=== PATIENT | female | born 1990 | race Caucasian/White ===

== ENCOUNTER → 2023-01-11 | Outpatient (CLI) | payer OTHER ==
[2023-01-11 13:55] VITALS: BP 114/68; PULSE 57; TEMP 98.3; BMI 32.1
--- NOTE | 2023-01-11 17:42 | P.HPBAR ---
Bariatric H&P - History & Physicial H&P Date: 01/11/23 History & Physicial: Visit/CC: lap band Patient initial contact: Initial weight: Initial weight in pounds: Height: 5 ft 8 in Initial BMI: Last weight: Current weight: 95.708 kg Current weight in pounds: 211.00 Current BMI: 32.1 [place] body weight (based on NIH guidelines): 63.503 kg Excess body weight loss: The patient is a 32 year-old F who presents for Bariatric Assessment. Patient resents today for LAP-BAND follow-up. She's not been seen in many years. Her LAP-BAND was placed 2008 12. Patient had a computed tomography scan performed at outside hospital showed disconnection of her LAP-BAND port. Patient wishes to have a LAP-BAND system removed. Past Medical History Past Medical History: No Reported History History of Any Multi-Drug Resistant Organisms: None Reported Past Surgical History: Bariatric Surgery, Breast Surgery Additional Past Surgical History / Comment(s): breast reduction, lap band 2008 Past Anesthesia/Blood Transfusion Reactions: No Reported Reaction Past Psychological History: No Psychological Hx Reported Smoking Status: Never smoker Past Alcohol Use History: Occasional Past Drug Use History: None Reported Surgical - Exam Vital Signs Temp Pulse BP 98.3 F 57 L 114/68 01/11/23 13:37 01/11/23 13:37 01/11/23 13:37 - General well developed, well nourished, no distress - Eyes PERRL - ENT normal pinna - Neck no masses - Abdomen Abdomen: soft, non tender Bariatric Assessment & Plan Plan: LAP-BAND port malfunction. Patient will have her LAP-BAND system removed. Patient is aware the risk After the LAP-BAND system was removed. Bariatric Checklist Checklist: Plan: Checklist: EGD: 1. Hiatal hernia: 2. H. Pylori: HgbA1c: Vitamin D: Smoking: Primary care physician referral: Dr. Mcduffie Psychiatry clearance: Cardiology clearance: Sleep study: Diet journal: VTE risk score: VTE risk level: Rehab needs at discharge:
== END ==
LOC: BARWHC3 13:04
PROVIDERS: ATTEND Surgery
DX: K95.09 Other complications of gastric band procedure (principal); E66.01 Morbid (severe) obesity due to excess calories; Z68.32 Body mass index [BMI] 32.0-32.9, adult; Z98.84 Bariatric surgery status
CPT/HCPCS: 99202

== ENCOUNTER 2023-02-12 05:36 | Day surgery (SDC) | payer OTHER ==
[2023-02-08 09:46] VITALS: BMI 31.9
[2023-02-12] MEDS ORDERED: SCOPOLAMINE 1 MG/72 HR PATCH TRANSDERM ONE (05:48)
[2023-02-12] MEDS ORDERED: ONDANSETRON 4 MG/2 ML VIAL IVP ONE (05:48)
[2023-02-12] MEDS ORDERED: DEXAMETHASONE SOD PHOSPHATE 4 MG/ML 1 ML VIAL IV ONE (05:48)
[2023-02-12] MEDS ORDERED: LACTATED RINGERS 1,000 ML IV SCH (05:48)
[2023-02-12] MEDS ORDERED: LACTATED RINGERS 1,000 ML IV ONE (06:17)
[2023-02-12 06:24] VITALS: TEMP 97.8
[2023-02-12] MEDS ORDERED: MIDAZOLAM 2 MG/2 ML VIAL IV PRN (07:00)
[2023-02-12] MEDS ORDERED: fentaNYL (PF) 50 MCG/ML 2 ML AMP IV PRN (07:00)
[2023-02-12] MEDS ORDERED: GLYCOPYRROLATE 0.2 MG/ML 2 ML VIAL ONE (07:08)
[2023-02-12] MEDS ORDERED: HYDROmorphone (PF) 1 MG/ML ONE (07:08)
[2023-02-12] MEDS ORDERED: fentaNYL (PF) 50 MCG/ML 2 ML AMP ONE (07:08)
[2023-02-12] MEDS ORDERED: ROCURONIUM 10 MG/ML (5 ML VIAL) IV ONE (07:08)
[2023-02-12] MEDS ORDERED: MIDAZOLAM 2 MG/2 ML VIAL ONE (07:08)
[2023-02-12] MEDS ORDERED: LIDOCAINE 1% INJ 10MG/ML (20 ML MDV) ONE (07:08)
[2023-02-12] MEDS ORDERED: KETOROLAC 15 MG/ML 1 ML VIAL ONE (07:08)
[2023-02-12] MEDS ORDERED: NEOSTIGMINE 1 MG/ML 10 ML VIAL ONE (07:08)
[2023-02-12] MEDS ORDERED: SUCCINYLCHOLINE CHLORIDE 200 MG/10 ML VIAL IV ONE (07:08)
[2023-02-12] MEDS ORDERED: PROPOFOL 10 MG/ML 20 ML VIAL IV ONE (07:08)
[2023-02-12] MEDS ORDERED: BUPIVACAINE (PF) 0.5% 30 ML VIAL SQ ONE (07:39)
--- NOTE | 2023-02-12 08:08 | P.GSHP ---
History of Present Illness H&P Date: 02/12/23 Chief Complaint: LAP-BAND port malfunction This a 29-year-old female who's had LAP-BAND surgeon past. Patient has a LAP- BAND port malfunction with a disconnect LAP-BAND port. Patient requesting removal LAP-BAND system. Patient's aware the risks and potential weight gain. Past Medical History Past Medical History: No Reported History Additional Past Medical History / Comment(s): LAP BAND MALFUNCTION History of Any Multi-Drug Resistant Organisms: None Reported Past Surgical History: Bariatric Surgery, Breast Surgery Additional Past Surgical History / Comment(s): breast reduction, lap band 2009, EGD Past Anesthesia/Blood Transfusion Reactions: No Reported Reaction Smoking Status: Never smoker - Past Family History Mother Family Medical History: No Reported History Medications and Allergies Home Medications Medication Instructions Recorded Confirmed Type No Known Home Medications 12/30/22 02/08/23 History Allergies Allergy/AdvReac Type Severity Reaction Status Date / Time morphine Allergy Rash/Hives Verified 02/08/23 09:18 Surgical - Exam Vital Signs Temp Pulse Resp BP Pulse Ox 97.8 F 78 18 129/60 98 02/12/23 06:16 02/12/23 06:16 02/12/23 06:16 02/12/23 06:16 02/12/23 06:16 - General well developed, well nourished, no distress - Eyes PERRL - ENT normal pinna - Neck no masses - Respiratory normal expansion - Cardiovascular Rhythm: regular - Abdomen Abdomen: soft, non tender Assessment and Plan Assessment: LAP-BAND port function. We'll perform removal of LAP-BAND port system.
--- NOTE | 2023-02-12 08:10 | P.OP ---
Date of Procedure: 02/12/23 Preoperative Diagnosis: LAP-BAND port malfunction Postoperative Diagnosis: LAP-BAND port malfunction Procedure(s) Performed: Removal of LAP-BAND system Transversus abdominis plane block Anesthesia: ERROL Surgeon: Jose Campos Estimated Blood Loss (ml): 5 Pathology: none sent Condition: stable Disposition: PACU Description of Procedure: The patient's placed on the operative table in the supine position. She received general endotracheal tube anesthesia. She was then placed in dorsal 5 position. Her abdomen was prepped and draped usual sterile fashion. The skin incision sites were anesthetized 1% local Xylocaine. And then using a 15 blade the skin was incised LAP-BAND port. Using electrocautery the LAP-BAND port was dissected free. Then using a 5 mm optical trocar under direct visualization the perineal cavity was entered. And the abdomen was insufflated. After adequate insufflation the 5 mm laparoscope placed the pleural cavity. Next a four- quadrant transverse abdominal pain block was performed using 1% local Xylocaine. Next a 5 mm trochars placed in the right epigastric and right lateral position. The original 5 mm trocar the port site was exchanged for a 15 mm trocar. And then a 5 mm trochars placed in the left periumbilical area. The LAP-BAND device was seen. The adhesions to the liver LAP-BAND device were lysed using left cautery. And then the adhesions around the LAP-BAND buckle were lysed using electrocautery. The LAP-BAND device then cut The buckle and withdrawn from around stomach. The LAP-BAND device was then withdrawn through the 15 mm trocar site. The some was prepped. There is no evidence of any injury to the stomach. The trochars withdrawn. The skin was then closed interrupted 3-0 Monocryl suture. Dermabond was applied. Patient top she will she was sent to recovery room in stable condition.
[2023-02-12 09:14] VITALS: RESP 18
[2023-02-12 10:01] VITALS: BP 113/68; PULSE 53
== END 2023-02-12 10:18 | disposition home or self-care (01) ==
LOC: OR 05:36
PROVIDERS: ATTEND Surgery
DX: K95.09 Other complications of gastric band procedure (principal); Y83.8 Other surgical procedures as the cause of abnormal reaction of the patient, or of later complication, without mention of misadventure at the time of the procedure; Z98.890 Other specified postprocedural states; Z88.5 Allergy status to narcotic agent
CPT/HCPCS: 64488; 81025; 43774; J2250; J0330; J1100; J2710; J0690; J2405; J2001; J3010; J1170; J1885; J2704; J0665